=== PATIENT | male | born 1975 | race Caucasian/White ===

== ENCOUNTER 2017-03-16 10:23 | Emergency (ER) | payer SELFPAY ==
[2017-03-16] MEDS ORDERED: NORMAL SALINE 1000 ML 1,000 ML IV ONE ×2 (10:36→15:50)
[2017-03-16] MEDS ORDERED: IPRATROPIUM/ALBUTEROL 0.5-2.5 MG/3 ML AMPUL NEB ONE (10:37)
--- NOTE | 2017-03-16 10:38 | ER Document Report ---
ED Medical Screen (RME) - General Chief Complaint: Breathing Difficulty Stated Complaint: DIFFICULTY BREATHING Time Seen by Provider: 03/16/17 10:36 Mode of Arrival: Wheelchair Information source: Patient Notes: Patient presents with cough and difficulty breathing for over the past week. Patient reports subjective fevers at home. Patient reports that all family members in the household have recently been sick but his symptoms have persisted. hx: None TRAVEL OUTSIDE OF THE [place] IN LAST 30 DAYS: No - Related Data Allergies/Adverse Reactions: No Known Allergies Allergy (Verified 06/03/13 09:56) Past Medical History Neurological Medical History: Denies: Hx Seizures Renal/ Medical History: Denies: Hx Peritoneal Dialysis Past Surgical History: Reports: Hx Orthopedic Surgery - LOW BACK, AFTER INJURY - Immunizations Hx Diphtheria, Pertussis, Tetanus Vaccination: Yes - 2010 Physical Exam - Vital signs Vitals: Temp Pulse Resp BP Pulse Ox 97.5 F 136 H 26 H 118/93 H 95 03/16/17 10:28 03/16/17 10:03/16/17 10:03/16/17 10:03/16/17 10:28 - Respiratory Respiratory status: Labored, Tachypnea Breath sounds: Productive cough - Cardiovascular Rhythm: Tachycardia Heart sounds: S1 appreciated, S2 appreciated Course - Vital Signs Vital signs: Temp Pulse Resp BP Pulse Ox 97.5 F 136 H 26 H 118/93 H 95 03/16/17 10:28 03/16/17 10:28 03/16/17 10:28 03/16/17 10:28 03/16/17 10:28
[2017-03-16] MEDS ORDERED: LEVOFLOXACIN 750 MG/D5W RTU 150 ML IV ONE (11:11)
[2017-03-16] MEDS ORDERED: NORMAL SALINE 1000 ML 1,000 ML IV PRN (11:12)
[2017-03-16 11:44] LABS: ABSOLUTE BASOPHILS # (AUTO) 0.1 10^3/uL (0.0-0.2); ABSOLUTE EOSINOPHILS # (AUTO) 0.7 10^3/uL (0.0-0.6); ABSOLUTE LYMPHOCYTES (AUTO) 2.8 10^3/uL (0.5-4.7); ABSOLUTE MONOCYTES (AUTO) 0.9 10^3/uL (0.1-1.4); ABSOLUTE NEUT (AUTO) 11.8 10^3/uL (1.7-8.2); BASOPHILS % (AUTO) 0.5 % (0-2); EOSINOPHILS % (AUTO) 4.1 % (0-6); HEMATOCRIT 45.3 % (37.9-51.0); HGB HCT DIFFERENCE -0.3; LYMPHOCYTES % (AUTO) 17.5 % (13-45); MEAN CORPUSCULAR HEMOGLOBIN 29.3 pg (27.0-33.4); MEAN CORPUSCULAR HGB CONC 33.2 g/dL (32.0-36.0); MEAN CORPUSCULAR VOLUME 88 fl (80-97); MONOCYTES % (AUTO) 5.4 % (3-13); RED BLOOD COUNT 5.14 10^6/uL (4.35-5.55); RED CELL DISTRIBUTION WIDTH 14.2 % (11.5-14.0); SEGMENTED NEUTROPHILS % (AUTO) 72.5 % (42-78); WHITE BLOOD COUNT 16.2 10^3/uL (4.0-10.5)
[2017-03-16 11:47] LABS: VENOUS BLOOD BASE EXCESS -0.2 mmol/L; VENOUS BLOOD HCO3 20.8 mmol/L (20-32); VENOUS BLOOD PCO2 25.6 mmHg (35-63); VENOUS BLOOD PH 7.53 (7.30-7.42)
[2017-03-16 11:50] LABS: PROTHROMBIN TIME 14.6 SEC (11.4-15.4)
[2017-03-16 12:01] LABS: ALANINE AMINOTRANSFERASE 40 U/L (21-72); ALKALINE PHOSPHATASE 103 U/L (38-126); ANION GAP 18 (5-19); ASPARTATE AMINO TRANSFERASE 22 U/L (17-59); BILIRUBIN,DIRECT 0.7 mg/dL (0.0-0.4); BLOOD UREA NITROGEN 17 mg/dL (7-20); CALCIUM 9.4 mg/dL (8.4-10.2); CARBON DIOXIDE 16 mmol/L (22-30); CHLORIDE 106 mmol/L (98-107); CREATINE KINASE 71 U/L (55-170); CREATININE RESULT 1.11 mg/dL (0.52-1.25); GLUCOSE 185 mg/dL (75-110); POTASSIUM 4.2 mmol/L (3.6-5.0); SODIUM 140.3 mmol/L (137-145); TOTAL PROTEIN 7.5 g/dL (6.3-8.2)
--- NOTE | 2017-03-16 12:23 | RADIOLOGY REPORT (SQ) ---
EXAM DESCRIPTION: CHEST SINGLE VIEW COMPLETED DATE/TIME: 03/16/2017 11:40 am REASON FOR STUDY: cough, DB COMPARISON: 06/03/2013 EXAM PARAMETERS: NUMBER OF VIEWS: One view. TECHNIQUE: Single frontal radiographic view of the chest acquired. RADIATION DOSE: NA LIMITATIONS: None. FINDINGS: LUNGS AND PLEURA: Minimal airspace disease in the periphery of the right mid lung. This c ould represent a small focus of pneumonia or possible pulmonary infarct. MEDIASTINUM AND HILAR STRUCTURES: No masses. Contour normal. HEART AND VASCULAR STRUCTURES: Heart normal in size. Normal vasculature. BONES: No acute findings. HARDWARE: None in the chest. OTHER: No other significant finding. IMPRESSION: Peripheral focus of consolidation right mid lung. Differential is small focus of pneumo roberto versus pulmonary infarct TECHNICAL DOCUMENTATION: JOB ID: [id number]
[2017-03-16] MEDS ORDERED: ASPIRIN 325 MG TABLET PO ONE (12:26)
--- NOTE | 2017-03-16 12:56 | EKG REPORT ---
SEVERITY:- ABNORMAL ECG - SINUS TACHYCARDIA BORDERLINE RIGHT AXIS DEVIATION ABNORMAL T, CONSIDER ISCHEMIA, INFERIOR LEADS : Confirmed by: Domenico Pradhan MD 16-Mar-2017 12:55:27
--- NOTE | 2017-03-16 13:14 | RADIOLOGY REPORT (SQ) ---
EXAM DESCRIPTION: CTA CHEST COMPLETED DATE/TIME: 03/16/2017 12:17 pm REASON FOR STUDY: sob tachy sepsis COMPARISON: AP chest 03/16/2017 TECHNIQUE: CT scan of the chest performed using helical scanning technique with dynamic intravenous contrast injection. Images reviewed with lung, soft tissue and bone windows. Reconstructed coronal and sagittal MPR images reviewed. Additional 3 dimensional post-processing performed to develop Maximal Intensity Projection images (AK P). All images stored on PACS. All CT scanners at this facility use dose modulation, iterative reconstruction, and/or weight based d osing when appropriate to reduce radiation dose to as low as reasonably achievable (ALARA). [facility]: Dose Right [facility]: CareDose [facility]: Dose Right [facility]: Teradose 4D [facility]: Spotie CONTRAST TYPE AND DOSE: contrast/concentration: Isovue 370.00 mg/ml; Total Contrast Delivered: 83.0 ml; Total Saline Delivered: 100.0 ml RENAL FUNCTION: Creatinine 1.1 RADIATION DOSE: Up-to-date CT equipment and radiation dose reduction techniques were employed. CTDIv ol: 19.8 - 26.0 mGy. DLP: 3973 mGy-cm. . LIMITATIONS: None. FINDINGS: There is a large saddle pulmonary embolus, with emboli filling the distal right and left m ain pulmonary arteries extending into the segmental pulmonary arteries. This finding was called as a critical result to Dr. Potts in the emergency room, 1255 hours 03/16/2017. LUNGS AND PLEURA: Multiple peripheral wedge-shaped pulmonary infarcts are present, the most prominent is along the lateral aspect of the right lower lobe near the major fissure which can be seen on ches t film. No pleural effusions. No pneumothorax. Airways are patent. AORTA AND GREAT VESSELS: No aneurysm or dissection. HEART: No pericardial effusion. PULMONARY ARTERIES: Large saddle pulmonary embolus, with emboli filling the distal right and distal l eft main pulmonary arteries. Clot extends into the segmental pulmonary arteries. HILAR AND MEDIASTINAL STRUCTURES: No identified masses or abnormal nodes. HARDWARE: None in the chest. UPPER ABDOMEN: No calcified stones in the gallbladder THYROID AND OTHER SOFT TISSUES: No masses. No adenopathy. BONES: No acute or significant finding. 3D MIPS: Confirm above findings. OTHER: No other significant finding. IMPRESSION: Heavy burden of bilateral pulmonary emboli COMMENT: Pertinent findings on the imaging study reported as a CRITICAL RESULT to SAMIRA Brothers at12:55 on 03/16/2017. Category of Critical Result: Heavy burden of bilateral pulmonary emboli TECHNICAL DOCUMENTATION: JOB ID: [id number] Quality ID # [id number]: Final reports with documentation of one or more dose reduction techniques (e.g., Au tomated exposure control, adjustment of the mA and/or kV according to patient size, use of iterative reconstruction technique) 2010 [employer]- All Rights Reserved
[2017-03-16] MEDS ORDERED: ENOXAPARIN SODIUM INJ 120 MG/0.8 ML DISP.SYRIN SUBCUT SCH (13:15)
--- NOTE | 2017-03-16 13:23 | RADIOLOGY REPORT (SQ) ---
EXAM DESCRIPTION: CT ABD/PELVIS WITH IV ONLY COMPLETED DATE/TIME: 03/16/2017 1:02 pm REASON FOR STUDY: ruq pain COMPARISON: CT angio chest same date TECHNIQUE: CT scan of the abdomen and pelvis performed using helical scanning technique with dynamic intravenous contrast injection. No oral contrast. Images reviewed with lung, soft tissue, and bone windows. Reconstructed coronal and sagittal MPR images reviewed. Delayed images for evaluation of the urinary system also acquired. All images stored on PACS. All CT scanners at this facility use dose modulation, iterative reconstruction, and/or weight based d osing when appropriate to reduce radiation dose to as low as reasonably achievable (ALARA). [facility]: Dose Right [facility]: CareDose [facility]: Dose Right [facility]: Teradose 4D [facility]: WIDIP CONTRAST TYPE AND DOSE: 83 mL Isovue 370- low osmolar. RENAL FUNCTION: Creatinine 1.1 RADIATION DOSE: 49 mGy. LIMITATIONS: Motion artifact, patient vomited after contrast injection FINDINGS: LOWER CHEST: No significant findings. No nodules or infiltrates. LIVER: Normal size. No masses. No dilated ducts. SPLEEN: Normal size. No focal lesions. PANCREAS: No masses. No significant calcifications. No adjacent inflammation or peripancreatic fluid collections. Pancreatic duct not dilated. GALLBLADDER: No identified stones by CT criteria. No inflammatory changes to suggest cholecystitis. ADRENAL GLANDS: No significant masses or asymmetry. RIGHT KIDNEY AND URETER: No solid masses. No significant calcifications. No hydronephrosis or hyd roureter. LEFT KIDNEY AND URETER: No solid masses. Less than 1 cm cyst left upper pole kidney. No significant calcifications. No hydronephrosis or hydroureter. AORTA AND VESSELS: No aneurysm. No dissection. Renal arteries, SMA, celiac without stenosis. RETROPERITONEUM: No retroperitoneal adenopathy, hemorrhage or masses. BOWEL AND PERITONEAL CAVITY: No masses or inflammatory changes. No free fluid or peritoneal masses. APPENDIX: Normal. PELVIS: No mass or free fluid. Normal bladder. ABDOMINAL WALL: No masses. No hernias. BONES: No significant or acute findings. OTHER: Results discussed with Dr. Potts. IMPRESSION: NO SIGNIFICANT OR ACUTE FINDING IN THE ABDOMEN OR PELVIS ON CT SCAN WITH IV CONTRAST. TECHNICAL DOCUMENTATION: JOB ID: [id number] Quality ID # [id number]: Final reports with documentation of one or more dose reduction techniques (e.g., Au tomated exposure control, adjustment of the mA and/or kV according to patient size, use of iterative reconstruction technique) 2010 [employer]- All Rights Reserved
[2017-03-16 15:03] LABS: APPEARANCE,URINE CLEAR; BILIRUBIN,URINE NEGATIVE (NEGATIVE); GLUCOSE, URINE NEGATIVE (NEGATIVE); KETONES,URINE NEGATIVE (NEGATIVE); LEUKOCYTE ESTERASE,URINE NEGATIVE (NEGATIVE); NITRITE,URINE NEGATIVE (NEGATIVE); PROTEIN,URINE 30 mg/dL (NEGATIVE)
[2017-03-16 15:08] LABS: URINE SPECIFIC GRAVITY > 1.060
[2017-03-16 15:09] LABS: ARTERIAL BLOOD BASE EXCESS -3.7 mmol/L; ARTERIAL BLOOD O2 SATURATION 98.1 % (94-98)
--- NOTE | 2017-03-16 15:14 | RADIOLOGY REPORT (SQ) ---
EXAM DESCRIPTION: CT HEAD WITHOUT COMPLETED DATE/TIME: 03/16/2017 2:36 pm REASON FOR STUDY: eval for tpa COMPARISON: CT brain 04/12/2011 TECHNIQUE: Axial images acquired through the brain without intravenous contrast. Images reviewed wi th bone, brain and subdural windows. Images stored on PACS. All CT scanners at this facility use dose modulation, iterative reconstruction, and/or weight based d osing when appropriate to reduce radiation dose to as low as reasonably achievable (ALARA). [facility]: Dose Right [facility]: CareDose [facility]: Dose Right [facility]: Teradose 4D [facility]: [employer] RADIATION DOSE: Up-to-date CT equipment and radiation dose reduction techniques were employed. CTDIv ol: 64.6 mGy. DLP: 1292 mGy-cm. mGy. LIMITATIONS: Mild motion artifact FINDINGS: VENTRICLES: Normal size and contour. CEREBRUM: No masses. No hemorrhage. No midline shift. Normal moreno/white matter differentiation. N o evidence for acute infarction. CEREBELLUM: No masses. No hemorrhage. No alteration of density. No evidence for acute infarction. EXTRAAXIAL SPACES: No fluid collections. No masses. ORBITS AND GLOBE: No intra- or extraconal masses. Normal contour of globe without masses. CALVARIUM: No fracture. PARANASAL SINUSES: No fluid or mucosal thickening. SOFT TISSUES: No mass or hematoma. OTHER: No other significant finding. IMPRESSION: MILD MOTION ARTIFACT. NO ACUTE CHANGES. TECHNICAL DOCUMENTATION: JOB ID: [id number] Quality ID # [id number]: Final reports with documentation of one or more dose reduction techniques (e.g., Au tomated exposure control, adjustment of the mA and/or kV according to patient size, use of iterative reconstruction technique) 2010 [employer]- All Rights Reserved
[2017-03-16] MEDS ORDERED: ALTEPLASE INJ 100 MG VIAL IV ONE (15:29)
--- NOTE | 2017-03-16 16:15 | ER Document Report ---
ED General - General Mode of Arrival: Wheelchair TRAVEL OUTSIDE OF THE [place] IN LAST 30 DAYS: No - HPI Patient complains to provider of: Difficulty in breathing <SAMIRA KESSLER - Last Filed: 03/16/17 16:09> <CARLOS GUAMAN - Last Filed: 03/16/17 18:04> - General Chief Complaint: Breathing Difficulty Stated Complaint: DIFFICULTY BREATHING Time Seen by Provider: 03/16/17 10:36 - HPI Notes: Patient coming in for difficulty breathing ongoing for the last 3 weeks. Patient states that multiple people in his house so came in virus however the relief of her symptoms within a week patient states her symptoms have continued. Patient states productive cough fevers and chills. Patient does smoke. Denies any recent travel denies any other medical issues denies any medical allergies. Denies any trauma. Upon evaluation patient was raised tachycardic and tachypneic. Patient was to be in mild respiratory distress ( SAMIRA KESSLER) - Related Data Allergies/Adverse Reactions: No Known Allergies Allergy (Verified 06/03/13 09:56) Past Medical History - General Information source: Patient - Social History Smoking Status: Current Some Day Smoker Chew tobacco use (# tins/day): No Frequency of alcohol use: None Drug Abuse: Marijuana Family History: None Patient has suicidal ideation: No Patient has homicidal ideation: No - Past Medical History Cardiac Medical History: Reports: Hx Heart Attack - "few years ago" Neurological Medical History: Denies: Hx Seizures Renal/ Medical History: Denies: Hx Peritoneal Dialysis Past Surgical History: Reports: Hx Orthopedic Surgery - LOW BACK, AFTER INJURY - Immunizations Hx Diphtheria, Pertussis, Tetanus Vaccination: Yes - 2010 <SAMIRA KESSLER - Last Filed: 03/16/17 16:09> Review of Systems - Review of Systems Constitutional: No symptoms reported EENT: No symptoms reported Cardiovascular: No symptoms reported Respiratory: Short of breath Gastrointestinal: No symptoms reported Genitourinary: No symptoms reported Male Genitourinary: No symptoms reported Musculoskeletal: No symptoms reported Skin: No symptoms reported Hematologic/Lymphatic: No symptoms reported Neurological/Psychological: No symptoms reported <SAMIRA KESSLER - Last Filed: 03/16/17 16:09> Physical Exam - Vital signs Interpretation: Tachycardic, Tachypneic - General General appearance: Appears well, Alert - HEENT Head: Normocephalic, Atraumatic Eyes: Normal Pupils: PERRL - Respiratory Respiratory status: Tachypnea Chest status: Nontender Breath sounds: Normal Chest palpation: Normal - Cardiovascular Rhythm: Regular, Tachycardia Heart sounds: Normal auscultation Murmur: No - Abdominal Inspection: Normal Distension: No distension Bowel sounds: Normal Tenderness: Nontender Organomegaly: No organomegaly - Back Back: Normal, Nontender - Extremities General upper extremity: Normal inspection, Nontender, Normal color, Normal ROM , Normal temperature General lower extremity: Normal inspection, Nontender, Normal color, Normal ROM , Normal temperature, Normal weight bearing. No: Anika's sign - Neurological Neuro grossly intact: Yes Cognition: Normal Orientation: AAOx4 [place] Coma Scale Eye Opening: Spontaneous [place] Coma Scale Verbal: Oriented Sandoval Coma Scale Motor: Obeys Commands [place] Coma Scale Total: 15 Speech: Normal Motor strength normal: LUE, RUE, LLE, RLE Sensory: Normal - Psychological Associated symptoms: Normal affect, Normal mood - Skin Skin Temperature: Warm Skin Moisture: Dry Skin Color: Normal <SAMIRA KESSLER - Last Filed: 03/16/17 16:09> Course - Laboratory Result Diagrams: 03/16/17 11:25 03/16/17 11:25 <SAMIRA KESSLER - Last Filed: 03/16/17 16:09> - Laboratory Result Diagrams: 03/16/17 11:25 03/16/17 11:25 <CARLOS GUAMAN - Last Filed: 03/16/17 18:04> - Re-evaluation Re-evalutation: 03/16/17 16:11 Initial chest x-ray and laboratory studies concerning for infection elevated lactic acid with a white count and infiltrate however was reviewed the x-ray today for wedge defect CTA was ordered showing saddle embolism with extensive thrombotic disease. Patient remained tachycardic despite fluid resuscitation patient was placed on 2 L of oxygen for his respiratory complaints. I did discuss with the hospitalist here at [facility] the patient more likely would benefit from thrombolytics and then transfer to tertiary care facility. I discussed with Dr. velazquez ICU attending at [facility] the assessment and the need for thrombolytics agreed to set the patient in transfer. Long discussion with patient at bedside patient does not have any criteria that would disqualify him from receiving TPA risk and benefits of receiving TPA were discussed with the patient and he agreed with the treatment therapy agree with transfer patient however refused to be transported to tertiary care facility therefore currently waiting for ACLS truck. (SAMIRA KESSLER) 03/16/17 18:04 Transportation in ER. Pt reevaluated and he is stable for transfer. (CARLOS GUAMAN) - Vital Signs Vital signs: Temp Pulse Resp BP Pulse Ox 98.4 F 136 H 18 121/81 96 03/16/17 16:58 03/16/17 10:28 03/16/17 17:45 03/16/17 17:45 03/16/17 17:45 - Laboratory Laboratory results interpreted by me: 03/16/17 03/16/17 03/16/17 11:25 11:25 11:25 WBC 16.2 H RDW 14.2 H Absolute Neutrophils 11.8 H Absolute Eosinophils 0.7 H Carbonic Acid ABG pH ABG pCO2 ABG HCO3 ABG Total CO2 ABG O2 Saturation VBG pH VBG pCO2 Carbon Dioxide 16 L Glucose 185 H Lactic Acid 3.8 H Total Bilirubin 2.0 H Direct Bilirubin 0.7 H Urine Protein Urine Blood Urine Urobilinogen 03/16/17 03/16/17 03/16/17 11:25 14:37 14:50 WBC RDW Absolute Neutrophils Absolute Eosinophils Carbonic Acid 0.59 L ABG pH 7.54 H ABG pCO2 19.6 L* ABG HCO3 16.5 L ABG Total CO2 17.1 L ABG O2 Saturation 98.1 H VBG pH 7.53 H VBG pCO2 25.6 L Carbon Dioxide Glucose Lactic Acid Total Bilirubin Direct Bilirubin Urine Protein 30 H Urine Blood SMALL H Urine Urobilinogen 8.0 H Critical Care Note - Critical Care Note Total time excluding time spent on procedures (mins): 80 <SAMIRA KESSLER - Last Filed: 03/16/17 16:09> <CARLOS GUAMAN - Last Filed: 03/16/17 18:04> - Critical Care Note Comments: Multiple evaluation to the patient with extensive PE disease discussing with multiple consultants with unstable vital signs (SAMIRA KESSLER) Discharge <SAMIRA KESSLER - Last Filed: 03/16/17 16:09> <CARLOS GUAMAN - Last Filed: 03/16/17 18:04> - Discharge Clinical Impression: Respiratory distress, Lactic acidosis Acute saddle pulmonary embolism Qualifiers: Acute cor pulmonale presence: without acute cor pulmonale Qualified Code(s): I26.92 - Saddle embolus of pulmonary artery without acute cor pulmonale Condition: Serious Disposition: [facility] ED Thrombolytic Exclus/Inclus. - Potential Diagnosis Potential Diagnosis: Pulmonary Embolism - Inclusion Criteria (Pulmonary Embolism) -: Clinical diagnosis confirmed by pulmonary angiography or perfusion lung scan -----: Yes - Exclusion Criteria : ABSOLUTE CRITERIA -: Active internal bleeding -----: No -: History of cerebrovascular accident -----: No -: Recent intracranial or intraspinal surgery or trauma -----: No -: Intracranial neoplasm, arteriovenous malformation, or aneurysm -----: No -: Known bleeding diathesis -----: No -: Severe uncontrolled hypertension -----: No -: Suspected aortic dissection -----: No : RELATIVE CRITERIA -: Recent major surgery, e.g. coronary artery bypass graft, obstetrical delivery , organ biopsy -----: No -: Previous puncture of noncompressible vessels -----: No -: Cerebrovascular disease -----: No -: Recent gastrointestinal or genitourinary bleeding -: Recent rauma (1-4 weeks) -----: No -: Hypertension: systolic BP greter than or equal to 180 mm Hg and/or diastolic BP greater than or equal to 110 mm Hg -----: No -: High likelihood of left heart thrombus, e.g. mitral stenosis with atrial fibrillation -----: No -: Acute pericarditis -----: No -: Subacute bacterial endocarditis -----: No -: Hemostatic defects including those secondary to severe hepatic or renal disease -----: No -: Sever hepatic or renal dysfunction -----: No -: -----: No -: Diabetic hemorrhagic retinopathy or other hemorrhagic ophthalmic conditions -----: No -: Septic thrombophlebitis or occluded AV cannula at a seriously infected site -----: No -: Advanced age -----: No -: Patients currently receiving oral anticoagulants, e.g., warfarin sodium (INR greater than 2-3) -----: No -: Any other condition in which bleeding constitutes a significant hazard or would be particularly difficult to manage because of its location -----: No -: Prolonged (greater than 10 minutes) and potentially traumatic CPR -----: No -: Malignancy with metastasis -----: No <SAMIRA KESSLER - Last Filed: 03/16/17 16:09>
[2017-03-16 17:53] VITALS: BP 121/81
== END 2017-03-16 18:11 | disposition short-term general hospital (02) ==
LOC: ER 10:23
DX: I26.92 Saddle embolus of pulmonary artery without acute cor pulmonale (principal); E87.2 Acidosis; R06.00 Dyspnea, unspecified; R06.02 Shortness of breath; F17.200 Nicotine dependence, unspecified, uncomplicated
CPT/HCPCS: 93005; 94640; 99291; 99292; 96372; 96361; 96365; 96366; 96367; 36415; 87040; 87086; 82803 ×2; 82550; 85025; 85610; 85730; 80053; 81001; 84484; 83605; 71010; 70450; 71275; 74177; 93010; J1650; J2997; J7030; J1956; J7620